=== PATIENT | male | born 2000 | race Caucasian/White ===

== ENCOUNTER 2023-10-24 04:26 | Emergency (ER) | payer BC, SELFPAY ==
[2023-10-24 04:42] VITALS: BP 126/78; PULSE 61; RESP 16; TEMP 36.5; O2SAT 97
--- NOTE | 2023-10-24 04:48 | ED_ITS ---
HPI - General Adult General Chief complaint: Ear/Nose/Throat Problem Stated complaint: boxelder bug in left ear Time Seen by Provider: 10/24/23 04:43 History of Present Illness HPI narrative: patient states a boxelder bug went into L ear while he was asleep, about 20 minutes ago the was trying to pull out the bug and pulled a wing off, patient state he can feel the bug moving 23-year-old young man presenting to the emergency department with concern of a box elder bug in his left ear. Evidently this entered while he was asleep. Presents very dowel pointer hours. Spouse attempted to pull this out and ended up pulling offer wing. He says he can feel the bug moving around. Quite distressing. I believe they also tried placing some oil. Related Data Home Medications Medication Instructions Recorded Confirmed amoxicillin 500 mg-potassium tab PO 02/22/23 02/22/23 clavulanate 125 mg tablet Allergies Allergy/AdvReac Type Severity Reaction Status Date / Time No Known Drug Allergies Allergy Verified 02/22/23 18:59 Review of Systems Status of ROS: Reports: 6 or more systems reviewed and unremarkable except as noted in History and below PFSH PFS Social History Smoking Status: Never smoker Non-prescribed substance use: denies use Exam Narrative: Exam Narrative: Pleasant. Tall. Calm. Breathing easily. No apparent injury to left ear pinnae. No drainage. Using a scope clearly visible black and bright red bug probably midway depth in the left ear canal. Lying on his back, legs up is the unusually offensive [employer]. I do leave to get a bayonet forceps. Able to obtain some purchase on this ins ect. Mr. Nuñez is quite sensitive to this process in while the ears are certainly sensitive, endorses a low pain tolerance. With repeated attempts able to retract this bug completely and looks to be intact. Is not moving any longer. Mr. Nuñez feels better. Re-examination of the ear canal does not show any apparent injury at the than maybe trace erythema. Const: Vital Signs, click to edit/add: Vital Signs - 24 hr 10/24/23 04:42 Temperature 97.7 F Pulse Rate [Pulse Oximeter] 61 Respiratory Rate 16 Blood Pressure [Ri ght Upper Arm] 126/78 Pulse Oximetry 97 Oxygen Delivery Me thod Room Air Documenting provider has reviewed patient's vital signs: yes Course Vital Signs Vital signs: Initial Vital Signs Temperature 97.7 F 10/24/23 04:42 Temperature Source Temporal Artery Scan 10/24/23 04:42 Pulse Rate 61 10/24/23 04:42 Respiratory Rate 16 10/24/23 04:42 Blood Pressure 126/78 10/24/23 04:42 Blood Pressure Mean 94 10/24/23 04:42 Blood Pressure Position Sitting 10/24/23 04:42 Pulse Oximetry 97 10/24/23 04:42 Oxygen Delivery Method Room Air 10/24/23 04:42 Vital Signs Temperature 97.7 F 10/24/23 04:42 Pulse Rate 61 10/24/23 04:42 Respiratory Rate 16 10/24/23 04:42 Blood Pressure 126/78 10/24/23 04:42 Pulse Oximetry 97 10/24/23 04:42 Oxygen Delivery Method Room Air 10/24/23 04:42 Temperature 97.7 F 10/24/23 04:42 Pulse Rate 61 10/24/23 04:42 Respiratory Rate 16 10/24/23 04:42 Blood Pressure 126/78 10/24/23 04:42 Pulse Oximetry 97 10/24/23 04:42 Oxygen Delivery Method Room Air 10/24/23 04:42 Medical Decision Making MDM Narrative Medical decision making narrative: See patient discharge plan for further discussion Discharge Plan Discharge Clinical Impression: Ear foreign body Patient Disposition: Home, Self-Care Condition: Improved Additional Instructions: Might need to start wearing a bugnet to bed? ;) I don't anticipate any trouble for you here. Of course swelling, redness, drainage would be reason to be re-evaluated. Prescriptions: No Action amoxicillin-pot clavulanate 500-125 mg tablet PO Follow Up/Referrals: Bertin Cervantes MD [Staff Physician] - Stand Alone [facility] Inst[facility] Procedures Ear Procedure Left Ear: Pre procedure diagnosis: Bug in ear Post procedure diagnosis: Bug in the ear Verification/time out: correct site Name of person performing procedure: Kemar Melchor Location: ear canal (L) Foreign Body Suspected: insect TM intact pre-procedure: unable to visualize Foreign Body Removed: yes Foreign Body Removal Technique: instrumentation (Bayonet forceps) Foreign body removed with general anesthesia: No Estimated blood loss (if any): none Complications: pain Patient Tolerated Procedure: no complications
== END 2023-10-24 05:46 | disposition home or self-care (01) ==
PROVIDERS: Emergency Provider Family Medicine; PCP Student in an Organized Health Care Education/Training Program
DX: T16.2XXA Foreign body in left ear, initial encounter (principal)
CPT/HCPCS: 69200; 99283; 99284